=== PATIENT | female | born 1975 | race Caucasian/White ===

== ENCOUNTER 2017-04-15 14:05 | Emergency (ER) | payer BC ==
[2017-04-15 14:20] VITALS: BP 136/85; BMI 48.4
--- NOTE | 2017-04-15 15:04 | DR.GENAD ---
HPI - PCP Primary Care Physician: GRISELDA - Complaint/Symptoms Chief Complaint Doctors Comments: History as stated. Chief Complaint:: PATIENT STATED THAT SHE HAS A MASSIVE ABCESS TO HER RIGHT GROIN FOR THE LAST THREE DAYS. SHE STATED THAT IT IS DRAINING AND SHE BELIEVES SHE HAS HAD FEVER. - Source History Provided: Patient - Mode of Arrival Mode of Arrival: Ambulatory - Timing Onset of Chief Complaint: 04/12/17 PMH - PMH Past Medical History: Yes Past Medical History: Arthritis, Depression, Hypertension Past Surgical History: Yes Surgical History: Appendectomy, Cholecystectomy, WRITER Surgery, Hysterectomy Past Surgical History Comment: LAP BAND - Family History History of Family Medical Conditions: Yes Family Medical History: Diabetes Mellitus, Coronary Artery Disease, Hypertension Family Medical History Comment: CVA - Social History Does patient currently use any type of tobacco product: No Have you used tobacco products in the last 12 months: No Type of Tobacco Use: None Does any household member use tobacco: No Alcohol Use: None Do you use any recreational Drugs:: No Lives With: Family Lives Where: Home - infectious screening In the last 2 months have you had wt loss of >10#?: NO Have you had fever, night sweats or hemotysis?: No Have you traveled outside the country in the last 6 months?: No Isolation: Standard ROS - Review of Systems Eyes: No Symptoms Reported ENTM: No Symptoms Reported Respiratoy: No Symptoms Reported Cardiovascular: No Symptoms Reported Gastrointestinal/Abdominal: No Symptoms Reported Genitourinary: No Symptoms Reported Neurological: No Symptoms Reported Integumentary: Lesions (right inner thigh) Hematologic/Lymphatic: No Symptoms Reported Endocrine: No Symptoms Reported Psychiatric: No Symptoms Reported All Other Systems: Reviewed and Negative PE - Vital Signs Vitals: Temperature 98.4 F Pulse Rate 89 Respiratory Rate 20 Blood Pressure 136/85 O2 Sat by Pulse Oximetry 97 - General Limitations: No Limitations General Appearance: Alert, In No Apparent Distress - Head Head Exam: Normal Inspection, Atraumatic - Eyes Eye exam: Normal Appearance, PERRL, EOMI - ENT ENT Exam: Normal Exam External Ear Exam: Normal External Inspection TM/Canal Exam: Bilateral Normal Nose Exam: Normal Nose Exam Mouth Exam: Normal Inspection Throat Exam: Normal Inspection - Neck Neck Exam: Normal Inspection, Full ROM - Chest Chest Inspection: Normal Inspection - Respiratory Respiratory Exam: Normal Lung Sounds Bilat Respiratory Exam: Bilateral Clear to Auscultation - Cardiovascular Cardiovascular Exam: Regular Rate, Normal Rhythm - Abdominal Exam Abdominal Exam: Normal Inspection Abdominal Tenderness: negative: RUQ, RLQ, LUQ, LLQ, Epigastrium, Suprapubic, Diffuse, Mild, Moderate, Severe, Other - Extremities Extremities Exam: Normal Inspection - Back Back Exam: Normal Inspection - Neurologic Neurological Exam: Alert, Oriented X3, CN II-XII Intact - Psychiatric Psychiatric Exam: Normal Affect - Skin Skin Exam: Warm, Dry, Erythema (Right anterior thigh inferior to inguinal fold and moms pubis laterally a draining abscess. There is mimimal erythema moms pubis and increase or right inner thigh) Course - Treatment Treatment: Clindamycin 900mg ROR - Labs Reviewed Laboratory: 04/15/17 14:55 Groin Gram Stain - Final - Diagnosis Discharge Problem: Cellulitis and abscess of other specified site - Discharge Plan Condition: Stable - Follow ups/Referrals Follow ups/Referrals: CIARA VILLALOBOS [Primary Care Provider] - 3 days - Instructions
[2017-04-15] MEDS ORDERED: CLEOCIN VIAL 600 MG ONE (15:05)
[2017-04-15] MEDS ORDERED: CLEOCIN 300 MG IV PREMIX 300 MG/50 ML BAG IV ONE (15:05)
[2017-04-15] MEDS ORDERED: CLEOCIN VIAL 600 MG 900 MG in D5W 50 ML IV 50 ML IV ONE (15:05)
[2017-04-15] MEDS ORDERED: NS 250 ML IV 250 ML IV ONE (15:06)
[2017-04-15] MEDS ORDERED: D5W 1000 ML IV 1,000 ML IV ONE (15:34)
== END 2017-04-15 17:56 | disposition home or self-care (01) ==
LOC: ER 14:15
DX: L03.115 Cellulitis of right lower limb (principal); L02.415 Cutaneous abscess of right lower limb; B95.61 Methicillin susceptible Staphylococcus aureus infection as the cause of diseases classified elsewhere
CPT/HCPCS: 87070; 87075; 87077; 87186; 87205; 96365; 99282; A4222; S0077

== ENCOUNTER 2017-08-10 18:19 | Emergency (ER) | payer BC, OTHER ==
[2017-08-10 18:27] VITALS: BP 114/56; BMI 48.4
[2017-08-10] MEDS ORDERED: VALTREX TAB 1 GM PO ONE ×2 (21:55→22:02)
[2017-08-10] MEDS ORDERED: TYLENOL #3 TAB (W/CODEINE) PO STA (21:56)
[2017-08-10] MEDS ORDERED: KEFLEX CAP 500 MG PO ONE ×2 (21:57→22:02)
[2017-08-10] MEDS ORDERED: TYLENOL #3 TAB (W/CODEINE) PO ONE (22:02)
--- NOTE | 2017-08-10 22:03 | DR.GENAD ---
HPI - PCP Primary Care Physician: GRISELDA - Complaint/Symptoms Chief Complaint Doctors Comments: Patient is complaining of a sore in the top of her head for the past two days getting worst with pain and swelling in the forehead on the left side. She denies blurred vision, nausea or vomiting. States the pain is 8 of 10 and is worst when she touch the top of her head. States she has a few bumps on her forehead and the top of her head. States she saw a doctor in [place] and they told her she had cellulitis but she is not taking any antibiotics. States she has had a hysterectomy in 2004. States she is not having an headache but it feels like pressure. She denies nausea or vomiting or dizziness. States she has been under a lot of stress with in her family and her father having to move in with her. She denies history of diabetes. She has not had a shot for the shingles. Chief Complaint:: PT STATES" I GOT A PLACE ON MY HEAD THAT MAY NEED TO BE LANCED AND MY HEAD AND THE LT SIDE OF MY FACE IS SWOLLEN" - Nurses notes reviewed Nurses Notes Review: Yes - Source History Provided: Patient - Mode of Arrival Mode of Arrival: Ambulatory - Timing Onset of Chief Complaint: 08/10/17 Came on: Gradually - Duration Duration: Constant How lon Duration: Days - Location Location: frontal parietal area - Severity Severity: Moderate - Modifying Factors Worsens:: pressure to the top of head on lesions Improves:: nothing PMH - PMH Past Medical History: Yes Past Medical History: Arthritis, Depression, Hypertension Past Surgical History: Yes Surgical History: Appendectomy, Cholecystectomy, PAPERHANGER PIPE Surgery, Hysterectomy - Family History History of Family Medical Conditions: Yes Family Medical History: Diabetes Mellitus, Coronary Artery Disease, Hypertension - Social History Do you use any recreational Drugs:: No Lives With: Family Lives Where: Home - infectious screening In the last 2 months have you had wt loss of >10#?: NO Have you had fever, night sweats or hemotysis?: No Have you traveled outside the country in the last 6 months?: No Isolation: Standard ROS - Review of Systems Constitutional: No Symptoms Reported. negative: See HPI, Chills, Diaphoresis, Fever, Malaise, Weakness, Irritable, Fatigue, Loss of Appetite, Other Eyes: No Symptoms Reported. negative: See HPI, Eye Pain, Blurred Vision, Tearing, Discharge, Photophobia, Diplopia, Other ENTM: No Symptoms Reported. negative: See HPI, Ear Pain, Ear Discharge, Pulling on Ears, Hearing Loss, Nose Pain, Nose Discharge, Epistaxis, Nose Congestion, Mouth Pain, Mouth Swelling, Loose Teeth, Drooling, Throat Pain, Throat Swelling, Ear Foreign Body Respiratoy: No Symptoms Reported. negative: See HPI, Productive Cough, Non- Productive Cough, Moist Cough, Dry Cough, Hacking Cough, Barking Cough, Brassy Cough, Orthopnea, Short of Breath, Stridor, Wheezing, Hemoptysis, Other Cardiovascular: No Symptoms Reported Gastrointestinal/Abdominal: No Symptoms Reported. negative: See HPI, Abdominal Pain, Constipation, Diarrhea, Nausea, Vomiting, Food Intolerance, Other Genitourinary: No Symptoms Reported. negative: See HPI, Discharge, Dysuria, Frequency, Hematuria, Pain, Bleeding, Other Neurological: No Symptoms Reported, Depressed, Emotional Problems, Headache Musculoskeletal: No Symptoms Reported Integumentary: No Symptoms Reported, Change in Color (1-2 cm lesion top of head) , Lesions. negative: See HPI, Change in Hair/Nails, Dryness, Lumps, Rash, Itching, Wound, Bruises, Juandice, Other Hematologic/Lymphatic: No Symptoms Reported Endocrine: No Symptoms Reported. negative: See HPI, Excessive Sweating, Flushing, Intolerance to Cold, Intolerance to Heat, Increased Hunger, Increased Thirst, Increased Urine, Unexplained Weight Gain, Unexplained Weight Loss, Failure to Thrive, Decreased Appetite, Other Psychiatric: No Symptoms Reported. negative: See HPI, Anxiety, Depression, Hallucinations, Excessive crying, Suicidal, Other PE - Vital Signs Vitals: Temperature 98.4 F Pulse Rate 92 Respiratory Rate 18 Blood Pressure 114/56 O2 Sat by Pulse Oximetry 98 - General Limitations: No Limitations General Appearance: Alert, In Distress (moderate) - Head Head Exam: Normal Inspection, Atraumatic, Normocephalic - Eyes Eye exam: Normal Appearance, PERRL, EOMI. negative: Scleral Icterus, Conjunctival Injection, Nystagmus, Miosis, Mydrasis, Periorbital Swelling, Periorbital Tenderness, Other - ENT ENT Exam: Normal Exam, Normal Oropharynx, Normal External Ear Exam, Mucous Membranes Moist, TM's Normal Bilaterally External Ear Exam: Normal External Inspection TM/Canal Exam: Bilateral Normal Nose Exam: Normal Nose Exam. negative: Sinus Tenderness, Nasal Deviation, Crepitus, Septal Hematoma, Laceration, Abrasion, Other Mouth Exam: Normal Inspection. negative: Drooling, Trismus, Lip Swelling, Tongue Elevation, Tongue Swelling, Laceration, Other Throat Exam: Normal Inspection. negative: Tonsillar Erythema, Tonsillomegaly, Tonsillar Exudate, R Peritonsillar Mass, L Peritonsillar Mass, Muffled Voice, Other - Neck Neck Exam: Normal Inspection, Full ROM, Trachea Midline, Lymphadenopathy - Chest Chest Inspection: Normal Inspection, Symmetric Chest Wall Rise. negative: Tenderness, Rash, Abscess, Other - Respiratory Respiratory Exam: Normal Lung Sounds Bilat. negative: Accessory Muscle Use, Chest Wall Tenderness, Prolonged Expiratory Phase, Respiratory Distress, Stridor , Other Respiratory Exam: Bilateral Clear to Auscultation - Cardiovascular Cardiovascular Exam: Regular Rate, Normal Rhythm, Normal Heart Sounds - Abdominal Exam Abdominal Exam: Normal Inspection, Normal Bowel Sounds, Soft Abdominal Tenderness: negative: RUQ, RLQ, LUQ, LLQ, Epigastrium, Suprapubic, Diffuse, Mild, Moderate, Severe, Other - Extremities Extremities Exam: Normal Inspection, Full ROM, Tenderness, Normal Capillary Refill. negative: Edema, Joint Swelling, Calf Tenderness, Other - Back Back Exam: Normal Inspection, Full ROM. negative: Tenderness, (R) CVA Tenderness, (L) CVA Tenderness, Muscle Spasm, Paraspinal Tenderness, Vertebral Tenderness, Rashes, (R) Sciatic Notch Tenderness, (L) Sciatic Notch Tendern, (R ) Straight Leg Raise, (L) Straight Leg Raise, Other - Neurologic Neurological Exam: Alert, Oriented X3, CN II-XII Intact, Normal Gait, Reflexes Normal - Psychiatric Psychiatric Exam: Normal Affect, Normal Mood, Anxious - Skin Skin Exam: Warm, Dry, Intact, Normal Color, Rash (parietal scalp), Erythema ( 2 cm lesion with eshar vs crusting) - Diagnosis Discharge Problem: Cellulitis of scalp Herpes zoster Qualifiers: Herpes zoster complications: without complications Qualified Code(s): B02.9 - Zoster without complications - Discharge Plan Disposition: 01 HOME, SELF-CARE Condition: Stable Prescriptions: Acetaminophen/Codeine Tab [TYLENOL w/CODEINE #3 (300 MG/30 MG) *] 1 tab PO Q4- 6H PRN #18 tab PRN Reason: Pain Cephalexin [KEFLEX CAP 500 MG *] 500 mg PO TID #30 cap Famciclovir 500 mg PO TID #21 tablet - Follow ups/Referrals Follow ups/Referrals: CIARA VILLALOBOS [Primary Care Provider] - 3 days - Instructions Instructions: Cellulitis, Adult, Shingles
== END 2017-08-10 22:16 | disposition home or self-care (01) ==
LOC: ER 18:31
DX: L03.811 Cellulitis of head [any part, except face] (principal); B02.9 Zoster without complications
CPT/HCPCS: 99282